=== PATIENT | female | born 1985 | race Caucasian/White ===

== ENCOUNTER 2019-10-24 18:34 | Emergency (ER) | payer OTHER ==
[~2019-10-24] VITALS: Ht 167.6 cm; Wt 82.6 kg
[2019-10-24 21:15] VITALS: BP 124/82
== END 2019-10-24 22:30 | disposition home or self-care (01) ==
LOC: ER 18:35
DX: M77.02 Medial epicondylitis, left elbow (principal); M77.01 Medial epicondylitis, right elbow; G56.23 Lesion of ulnar nerve, bilateral upper limbs; J45.909 Unspecified asthma, uncomplicated